=== PATIENT | male | born 2000 | race Caucasian/White ===

== ENCOUNTER 2018-02-16 13:17 | Emergency (ER) | payer SELFPAY ==
--- OUTSIDE RECORDS SUMMARY | 2018-02-16 13:19 | XMS REPORT | Clinical Summary ---
:2000 Author Organization [facility] Address [address] [place] [address] Care Team Providers Name Role Phone Danisha Sauer MD Primary Care Provider Allergies Active Allergy Reactions Severity Noted Date Comments Penicillin G 11/14/2016 Current Medications Prescription Sig. Disp. Refills Start Date End Date Status aspirin 325 MG Take 1 tablet 56 tablet 0 04/05/2017 Active tabletIndications: (325 mg total) Femoroacetabular by mouth 2 impingement of right (two) times a hip day after meals. docusate sodium Take 1 capsule 30 capsule 0 04/05/2017 Active (COLACE) 100 MG (100 mg total) capsuleIndications: by mouth 2 Femoroacetabular (two) times a impingement of right day. hip naproxen (NAPROSYN) Take 1 tablet by mouth 2 times a day with meals for 30 days 60 tablet 0 04/05/2017 Active 500 MG Begin taking Naproxen the day after you finish Indocin (Indomethacin) tabletIndications: Femoroacetabular impingement of right hip tiZANidine (ZANAFLEX) Take 1 tablet 10 tablet 0 04/05/2017 Active 4 MG (4 mg total) by tabletIndications: mouth every 8 Femoroacetabular (eight) hours impingement of right as needed for hip muscle spasms. ondansetron ODT Take 1 tablet 10 tablet 0 04/05/2017 Active (ZOFRAN ODT) 8 MG (8 mg total) by disintegrating mouth every 8 tabletIndications: (eight) hours Femoroacetabular as needed for impingement of right nausea or hip vomiting. indomethacin SR Take 1 capsule 4 capsule 0 04/05/2017 04/09/2017 (INDOCIN SR) 75 mg CR (75 mg total) capsuleIndications: by mouth daily Femoroacetabular with breakfast impingement of right for 4 days. hip esomeprazole (NexIUM) Take 1 capsule 7 capsule 0 04/05/2017 04/12/2017 20 MG (20 mg total) capsuleIndications: by mouth daily Femoroacetabular before impingement of right breakfast for 7 hip days. Active Problems No known active problems Encounters Date Type Specialty Care Team Description 07/31/2017 Office Visit Orthopedic Surgery Donald Gonzalez Femoroacetabular impingement of right hip (Primary Dx); MD Charan Hip instability, right; Hip instability, left; Femoroacetabular impingement of left hip; Labral tear of hip, degenerative 05/22/2017 Office Visit Orthopedic Surgery Donald Gonzalez Femoroacetabular impingement of right hip (Primary Dx); MD Charan Hip instability, right; Femoroacetabular impingement of left hip; Hip instability, left; Labral tear of hip, degenerative 05/05/2017 Orders Only Orthopedic Surgery Jayashree Bradshaw MA 04/19/2017 Office Visit Orthopedic Surgery Donald Gonzalez MD impingement of right hip (Primary Dx) 04/06/2017 Hospital Encounter Orthopedic Surgery Donald Gonzalez MD 04/06/2017 Procedure Pass Orthopedic Surgery 04/06/2017 Surgery Orthopedic Surgery Donald Gonzalez HIP ARTHROSCOPYCharan MD FEMOROPLASTY, ACETABULPLASTY, CAPSUALR REPAIR, LABREAL REFIXATION, ANTERIOR INFERIOR ILIAC SPINE SUBSPINE DECOMPRESSION 04/05/2017 Anesthesia Event Orthopedic Surgery Aba Thorne Jr., [facility] 04/05/2017 Orders Only Orthopedic Surgery Rose Bradshawacetabular GIANNA Blanc impingement of right hip (Primary Dx) 04/03/2017 Orders Only Orthopedic Surgery Leeann Femoroacetabular impingement of right hip (Primary Dx); GIANNA Blanc Other specific joint derangements of right hip, not elsewhere classified; Other sprain of right hip, initial encounter 02/24/2017 Office Visit Orthopedic Surgery Donald Gonzalez Femoroacetabular impingement of right hip (Primary Dx); MD Charan Hip instability, right; Femoroacetabular impingement of left hip; Hip instability, left; Labral tear of hip, degenerative 02/24/2017 Abstract Orthopedic Surgery Donald Gonzalez MD after 02/15/2017 Family History Medical History Relation Name Comments No Known Problems Father No Known Problems Mother Relation Name Status Comments Father Mother Social History Tobacco Use Types Packs/Day Years Used Date Never Smoker Alcohol Use Drinks/Week oz/Week Comments No Sex Assigned at Date Recorded Not on file Last Filed Vital Signs Vital Sign Reading Time Taken Blood Pressure 131/67 04/06/2017 2:00 PM CDT Pulse 110 04/06/2017 2:00 PM CDT Temperature 36.1 C (97 F) 07/31/2017 9:26 AM CDT Respiratory Rate 13 04/06/2017 12:16 PM CDT Oxygen Saturation 99% 04/06/2017 2:00 PM CDT Inhaled Oxygen Concentration - - Weight 59 kg (130 lb) 07/31/2017 9:26 AM CDT Height 172.7 cm (5' 8") 07/31/2017 9:26 AM CDT Body Mass Index 19.77 07/31/2017 9:26 AM CDT Plan of Treatment Health Maintenance Due Date Last Done Comments INFLUENZA VACCINE 05/02/2018 Implants Implanted Type Area Brick Pointer Device Expiration Model / Identifier Date Serial / Lot 1.8mm Q-Fix All Suture [place] - [id number] IMPLANT Right: [employer] 10/01/2019 25 1800 / Implanted: Qty: 1 on 04/06/2017 by Donald Gonzalez MD DEVICES Hip SPORTS MEDICINE / (ENDO) [id number] 1.8mm Q-Fix All Suture [place] - [id number] [id number] IMPLANT Right: [employer] 10/01/2019 25 1800 / Implanted: Qty: 1 on 04/06/2017 by Donald Gonzalez MD DEVICES Hip SPORTS MEDICINE / (ENDO) [id number] 1.8mm Q-Fix All Suture [place] - [id number] [id number] IMPLANT Right: [employer] 11/01/2019 25 1800 / Implanted: Qty: 1 on 04/06/2017 by Donald Gonzalez MD DEVICES Hip SPORTS MEDICINE / (ENDO) [id number] Speedstitch Magnumwire Suture Cartridge - [id number] [id number] IMPLANT N/A: [employer] [id number] / Implanted: Qty: 1 on 04/06/2017 by Donald Gonzalez MD DEVICES N/A SPORTS MEDICINE / (ENDO) Speedstitch Magnumwire Suture Cartridge - [id number] [id number] IMPLANT Right: [employer] [id number] / Implanted: Qty: 1 on 04/06/2017 by Donald Gonzalez MD DEVICES N/A SPORTS MEDICINE / (ENDO) Speedstitch Magnumwire Suture Cartridge - [id number] [id number] IMPLANT N/A: [employer] [id number] / Implanted: 04/06/2017 (Quantity not on file) DEVICES N/A SPORTS MEDICINE / (ENDO) [place] Slingshot 70 Degree - [id number] Surgical N/A: [employer] [id number] / Implanted: Qty: 1 on 04/06/2017 by Donald Gonzalez MD Implants; N/A MEDICINE / Expanders; Extenders; Surgical Wires Procedures Procedure Name Priority Date/Time Associated Diagnosis Comments CA AN ELECTIVE Routine 04/06/2017 7:46 AM ENDOTRACHEAL AIRWAY CDT Procedure Note - Aba Thorne Jr., STANDARDS ENGINEER - 04/06/2017 7:45 AM CDT Airway Date/Time: 04/06/2017 7:36 AM Performed by: ABA THORNE JR Authorized by: LA PRYOR I Location: OR Urgency: Elective Difficult Airway: No Preoxygenated with 100% O2: Yes C-spine Precautions Maintained Throughout: Yes Mask Ventilation: Easy mask Final Airway Type: Endotracheal airway Final Endotracheal Airway: ETT Cuffed: Yes Technique Used: Direct laryngoscopy Devices/Methods Used in Placement: Intubating stylet Insertion Site: Oral Blade Type: Chatterjee Laryngoscope Blade/Videolaryngoscope Blade Size: 2 ETT Size (mm): 7.0 Cuff at minimum occlusion pressure: Yes Measured from: Teeth ETT to Teeth (cm): 20 Placement Verified by: CO2 detection, direct visualization and equal breath sounds Laryngoscopic view: Grade I - full view of glottis Rapid Sequence Induction (RSI): No Modified RSI: No Number of Attempts at Approach: 1 HIP ARTHROSCOPY, FEMOROPLASTY, 04/06/2017 7:30 AM CDT HIP LABREAL TEAR ARUNA ACETABULPLASTY, CAPSUALR REPAIR, LABREAL REFIXATION, ANTERIOR INFERIOR ILIAC SPINE SUBSPINE DECOMPRESSION Special Needs [employer] HIP SCOPE TABLE HIP SCOPE SET LARGE C-ARM Raj texted-MR after 02/15/2017 Results XR Hip 4 Views Right (05/22/2017 3:03 PM) Specimen Performing Laboratory [facility] [address] [place] [address] Narrative Good cam correction. No fx. No HO. OR FL > I Hour (04/06/2017 9:15 AM) Specimen Performing Laboratory [facility] [address] [place] [address] Narrative EXAMINATION:OR FL 1 HOUR C-arm fluoroscopy was requested in OR. LOCATION:[facility] OR ROOM 8 PROCEDURE:RIGHT HIP SCOPE START TIME:30 END TIME:914 FLUORO TIME:17 SECS DOSE (mGy):3.39 mGy TECH(S):SS IMPRESSION: Separate operative report will be issued by the physician performing the procedure. [id number] Procedure Note Hm Interface, Radiology Results Incoming - 04/06/2017 6:05 PM CDT EXAMINATION: OR FL 1 HOUR C-arm fluoroscopy was requested in OR. LOCATION: [facility] OR ROOM 8 PROCEDURE: RIGHT HIP SCOPE START TIME: 729 END TIME: 914 FLUORO TIME: 17 SECS DOSE (mGy): 3.39 mGy TECH(S): SS IMPRESSION: Separate operative report will be issued by the physician performing the procedure. [id number] after 02/15/2017 Insurance Payer Benefit Plan / Group Subscriber ID Type Phone Address BCBS BCBS CHOICE PPO/FEDERAL EMPL PPO xxxxxxxxxxxx PPO Home: [address] [phone] [place] [id number]
--- NOTE | 2018-02-16 14:49 | ER ---
Nurse's Notes [facility] Name: Steve Yo Age: 17 yrs Sex: Male : 2000 Arrival Date: 02/16/2018 Time: 13:19 Bed Waiting Private MD: Diagnosis: Presentation: 02/16 13:33 Presenting complaint: Mother states: "He called me at work that he was throwing up and lk1 his back was hurting. He had blood in his urine last night". Transition of care: patient was not received from another setting of care. Onset of symptoms was February 15, 2018 at 20:00. Initial Sepsis Screen:. Care prior to arrival: None. 13:33 Method Of Arrival: Wheelchair lk1 13:33 Acuity: DYLAN 3 lk1 13:39 Initial Sepsis Screen: Does the patient meet any 2 criteria? No. Patient's initial lk1 sepsis screen is negative. Does the patient have a suspected source of infection? No. Patient's initial sepsis screen is negative. Triage Assessment: 13:36 General: Appears in no apparent distress. Behavior is calm, cooperative, appropriate lk1 for age. General: Appears slender, pale. Pain: Complains of pain in low back area Pain currently is 7 out of 10 on a pain scale. at worst was 10 out of 10 on a pain scale. Neuro: Level of Consciousness is awake, alert, obeys commands, Oriented to person, place, time, situation. Cardiovascular: Patient's skin is warm and dry. Respiratory: Airway is patent Respiratory effort is even, unlabored, Respiratory pattern is regular, symmetrical. GI: Reports vomiting. Musculoskeletal: Capillary refill < 3 seconds. Historical: - Allergies: 13:35 PENICILLINS; lk1 - PMHx: 13:35 Asthma; lk1 - PSHx: 13:35 right hip surgery; lk1 - Immunization history:: Adult Immunizations up to date. - Social history:: Smoking status: Patient/guardian denies using tobacco. Vital Signs: 13:37 BP 98 / 62; Pulse 67; Resp 11; Temp 98.3(TE); Pulse Ox 98% on R/A; Weight 58.97 kg (R); lk1 Height 5 ft. 10 in. (177.80 cm) (R); Pain 7/10; 13:37 Body Mass Index 18.65 (58.97 kg, 177.80 cm) lk1 ED Course: 13:19 Patient arrived in ED. as 13:34 Triage completed. lk1 13:39 Arm band placed on. lk1 14:48 Jose Raul Sharpe MD is Attending Physician. aa5 Administered Medications: No medications were administered Outcome: 14:49 Patient left the ED. aa5 Signatures: No Rogers Audri RN RN aa5 Maria Del Carmen Mitchell RN RN lk1
== END 2018-02-16 14:49 | disposition left against medical advice (07) ==
LOC: ER 13:17
DX: Z02.9 Encounter for administrative examinations, unspecified (principal)
CPT/HCPCS: 99281